=== PATIENT | male | born 1980 ===

== ENCOUNTER 2023-02-02 06:43 | Day surgery (SDC) | payer OTHER ==
[~2023-02-02] VITALS: Ht 172.7 cm; Wt 89.4 kg
[~2023-02-02 06:43] MED LIST: ZESTRIL10 M1 PO
== END 2023-02-02 16:20 | disposition home or self-care (01) ==
LOC: CIR.AMB 06:43
PROVIDERS: ATTEND Colon & Rectal Surgery
DX: K64.8 Other hemorrhoids (principal); K64.4 Residual hemorrhoidal skin tags; Z88.0 Allergy status to penicillin; I10 Essential (primary) hypertension; Z86.16 Personal history of COVID-19